=== PATIENT | male | born 1990 | race Caucasian/White ===

== ENCOUNTER 2024-04-24 13:09 | Emergency (ER) | payer SELFPAY ==
--- NOTE | ~2024-04-24 | XR_ITS ---
3 VIEWS THORACIC SPINE Ordering provider: Whitley Cook PA-C History: . back pain . Comparison: None. FINDINGS: VERTEBRAL BODIES: Normal height and alignment. No visible fracture or subluxation. Degenerative nam es in the lower cervical spine. DISK SPACES: Normal. SOFT TISSUES: Normal. IMPRESSION: No acute osseous abnormality of the thoracic spine. Reviewed, dictated and finalized at location A.
--- NOTE | ~2024-04-24 | XR_ITS ---
3 VIEWS LUMBAR SPINE Ordering provider: Whitley Cook PA-C History: . back pain . Comparison: None. FINDINGS: VERTEBRAL BODIES: No visible fracture or subluxation. DISK SPACES: Normal. SOFT TISSUES: Normal. IMPRESSION: No acute osseous abnormality lumbar spine. Reviewed, dictated and finalized at location A.
[2024-04-24 13:34] VITALS: BP 132/90; PULSE 99; RESP 16; TEMP 36.9; O2SAT 100
--- NOTE | 2024-04-24 14:22 | ED.BACK ---
HPI - Back Pain/Injury General Chief Complaint: Back Pain/Injury Stated Complaint: back pain Time Seen by Provider: 04/24/24 14:10 Source: patient Mode of arrival: ambulatory Limitations: no limitations History of Present Illness HPI Narrative: This is a 33 year old male that presents to the ER for mid to low back pain. Ongoing since yesterday. Reports throwing a tire. He has been increasingly sore since. Pain is worse with movement and relieved with rest. Take Tylenol and ibuprofen prior to arrival with little relief. Denies saddle anesthesia, bowel/bladder incontinence Related Data Allergies Allergy/AdvReac Type Severity Reaction Status Date / Time No Known Allergies Allergy Verified 04/24/24 14:08 Review of Systems Review of Systems: CONSTITUTIONAL: Denies fever SKIN: Denies rash MUSCULOSKELETAL: Reports back pain, joint pain, and myalgia. NEUROLOGIC: Denies numbness, or weakness. All systems reviewed & are unremarkable except as noted in HPI and below PMFSH Past Medical History Medical History (Updated 04/24/24 @ 16:13 by Whitley Cook PA-C) No active medical problems Social History Social History (Updated 04/24/24 @ 14:28 by Whitley Cook PA-C) Smoking status: Current every day smoker Exam Narrative: GENERAL: Well-appearing, well-nourished, and in no acute distress. HEAD: Normocephalic, atraumatic. EYES: EOMI. CHEST: Clear to auscultation. No respiratory distress. No wheezes rales or rhonchi HEART: Regular rate and rhythm. No murmur heard. Normal peripheral pulses. BACK: No midline spinal tenderness. Tender to palpation of paraspinal musculature EXTREMITIES: Normal range of motion. No edema. Strength equal in bilateral upper and lower extremities (5/5) SKIN: Warm, dry, no rash. NEURO: No focal deficits. Alert and oriented x3. PSYCH: Normal mood and affect Course Course Emergency Course: Patient updated on workup and agrees with plan of care Vital Signs Vital signs: Vital Signs Temperature 98.4 F 04/24/24 13:34 Pulse Rate 99 04/24/24 13:34 Respiratory Rate 16 04/24/24 13:34 Blood Pressure 132/90 04/24/24 13:34 Pulse Oximetry 100 04/24/24 13:34 Oxygen Delivery Room Air 04/24/24 13:34 Temperature 98.4 F 04/24/24 13:34 Pulse Rate 99 04/24/24 13:34 Respiratory Rate 16 04/24/24 13:34 Blood Pressure 132/90 04/24/24 13:34 Pulse Oximetry 100 04/24/24 13:34 Oxygen Delivery Room Air 04/24/24 13:34 MDM - Back Pain/Injury MDM Narrative Medical decision making narrative: Patient presents to the emergency department for mid to low back pain after throwing a heavy object yesterday. Patient is neurologically intact. X-rays of the thoracic and lumbar spine without concerning findings. Patient instructed on further care of muscle strain. He is to follow up with primary provider. He was given warnings to return to the ER Differential Diagnosis Differential diagnosis: Likely lumbar radiculopathy and strain of lumbar region Imaging Data Radiologist's impression: ITS Impressions Thoracic Spine X-Ray 04/24/24 15:53 IMPRESSION: No acute osseous abnormality of the thoracic spine. Lumbar Spine X-Ray 04/24/24 15:54 IMPRESSION: No acute osseous abnormality lumbar spine. Critical Care Time Critical Care Time Critical Care Time: No Discharge Plan Discharge Clinical Impression: Strain of lumbar region Qualifiers: Encounter type: initial encounter Qualified Code(s): S39.012A - Strain of muscle, fascia and tendon of lower back, initial encounter Patient Disposition: Home, Self-Care Condition: Stable Instructions: Muscle Strain (ED) Additional Instructions: Return to the ER if you experience weakness, numbness, bowel/bladder incontinence, or any other symptoms that are concerning to you Rest, use ice/heat, take anti-inflammatories (Aleve, Ibuprofen, Naproxen, etc) or Tylenol as needed for pain a
[2024-04-24] MEDS: predniSONE 20 MG TABLET 60 MG PO (14:52)
--- NOTE | 2024-04-24 15:05 | PC.NURSE ---
Pt reports having no ride home, will not take valium. EDP advised.
== END 2024-04-24 17:06 | disposition home or self-care (01) ==
PROVIDERS: Emergency Provider Physician Assistant
DX: S39.012A Strain of muscle, fascia and tendon of lower back, initial encounter (principal); F17.200 Nicotine dependence, unspecified, uncomplicated; X50.0XXA Overexertion from strenuous movement or load, initial encounter
CPT/HCPCS: 72072; 72100; 99283; J7512